=== PATIENT | male | born 1975 | race Caucasian/White ===

== ENCOUNTER 2018-12-16 00:42 | Emergency (ER) | payer MEDICAID ==
[~2018-12-16] VITALS: Ht 167.6 cm; Wt 81.8 kg
[~2018-12-16 00:42] MED LIST: IBUP-1986 PO
[2018-12-16] MEDS ORDERED: ibuprofen tablet 400 MG TABLET PO ONE (03:00)
[2018-12-16 03:19] VITALS: BP 136/87
== END 2018-12-16 03:29 | disposition home or self-care (01) ==
LOC: ER 00:43
DX: M25.511 Pain in right shoulder (principal); M54.9 Dorsalgia, unspecified; F15.10 Other stimulant abuse, uncomplicated
CPT/HCPCS: 99283

== ENCOUNTER 2020-03-27 14:51 | Emergency (ER) | payer MEDICAID ==
[~2020-03-27] VITALS: Ht 177.8 cm; Wt 78.3 kg
[2020-03-27 15:02] VITALS: BP 109/81
[2020-03-27] MEDS ORDERED: triamcinolone acetonide 40mg/ml inj IM ONE (15:10)
[2020-03-27] MEDS ORDERED: PRED20TA PO (15:21)
== END 2020-03-27 15:29 | disposition home or self-care (01) ==
LOC: ER 14:52
DX: L23.7 Allergic contact dermatitis due to plants, except food (principal); F17.200 Nicotine dependence, unspecified, uncomplicated; F12.90 Cannabis use, unspecified, uncomplicated; F15.90 Other stimulant use, unspecified, uncomplicated; Z79.899 Other long term (current) drug therapy
CPT/HCPCS: 96372; 99283; J3301

== ENCOUNTER 2022-03-07 13:56 | Emergency (ER) | payer MEDICAID ==
[~2022-03-07] VITALS: Ht 175.3 cm; Wt 70.0 kg
[2022-03-07 14:14] VITALS: BP 121/73
[2022-03-07] MEDS ORDERED: CEPH250T PO (16:55)
== END 2022-03-07 16:59 | disposition home or self-care (01) ==
LOC: ER 13:57
DX: L03.115 Cellulitis of right lower limb (principal)
CPT/HCPCS: 99283

== ENCOUNTER 2023-06-29 21:48 | Emergency (ER) | payer MEDICAID ==
[~2023-06-29] VITALS: Ht 175.3 cm; Wt 82.0 kg
[2023-06-29 22:05] VITALS: BP 141/93; PULSE 91; RESP 16; TEMP 98.2; O2SAT 97
[2023-06-29] MEDS ORDERED: PRED20TA PO (23:12)
[2023-06-29] MEDS ORDERED: SKIN30CL4 TP (23:12)
[2023-06-29] MEDS: dexamethasone sod phosphate 10mg/ml inj IM STA (23:15)
== END 2023-06-29 23:18 | disposition home or self-care (01) ==
LOC: ER 21:48
DX: L23.7 Allergic contact dermatitis due to plants, except food (principal); F12.90 Cannabis use, unspecified, uncomplicated; F15.90 Other stimulant use, unspecified, uncomplicated; Z79.1 Long term (current) use of non-steroidal anti-inflammatories (NSAID)
CPT/HCPCS: 96372; 99283; J1100